=== PATIENT | female | born 1940 | race Caucasian/White ===

== ENCOUNTER 2025-01-13 12:32 | Outpatient (CLI) | payer MEDICARE | END 2025-01-13 12:33 | disposition home or self-care (01) | LOC: CSHULT 12:32 | PROVIDERS: ATTEND Student in an Organized Health Care Education/Training Program | DX: R59.0 Localized enlarged lymph nodes (principal); D04.39 Carcinoma in situ of skin of other parts of face; Z85.3 Personal history of malignant neoplasm of breast | CPT/HCPCS: 76536 ==

== ENCOUNTER 2025-02-11 10:22 | Outpatient (CLI) | payer MEDICARE | END 2025-02-11 10:23 | disposition home or self-care (01) | LOC: CSHRAD 10:22 | PROVIDERS: ATTEND Family Medicine | DX: M25.561 Pain in right knee (principal) ==